=== PATIENT | male | born 1995 | race Caucasian/White ===

== ENCOUNTER 2019-04-10 15:42 | Emergency (ER) | payer OTHER ==
[2019-04-10] MEDS: KETOROLAC 30 MG INJ IM (17:02)
== END 2019-04-10 19:37 | disposition home or self-care (01) ==
LOC: FTE 15:42
DX: S99.911A Unspecified injury of right ankle, initial encounter (principal); X58.XXXA Exposure to other specified factors, initial encounter; Y92.310 Basketball court as the place of occurrence of the external cause
CPT/HCPCS: 73610; 73610-RT; 73630; 96372; 99284-25